=== PATIENT | male | born 1990 | race Caucasian/White ===

== ENCOUNTER → 2020-10-15 | Outpatient (CLI) | payer MEDICARE, OTHER ==
[~2020-10-15] MED LIST: ATIVAN0.5 MG PO; INDERAL TAB 4040 MG PO; LODINE CAP 300300 MG PO; MONODOX100 MG PO; NEXIUM40 MG PO; SAVELLA25 MG PO; SKELAXIN TAB 8800 MG PO; TESSALON PERLE100 MG PO; VITAMIN B12 PO; VITAMIN D250000 UNIT PO; ZOFRAN4 MG PO; ZYRTEC10 M3 PO
== END ==
LOC: KOH-I 10:51
DX: J47.9 Bronchiectasis, uncomplicated (principal); R06.02 Shortness of breath; R91.1 Solitary pulmonary nodule
CPT/HCPCS: 71250

== ENCOUNTER → 2020-11-01 | Outpatient (CLI) | payer MEDICARE, OTHER | LOC: KOH-I 11:01 | DX: S16.1XXA Strain of muscle, fascia and tendon at neck level, initial encounter (principal); M54.6 Pain in thoracic spine; X58.XXXA Exposure to other specified factors, initial encounter | CPT/HCPCS: 72040; 72070 ==

== ENCOUNTER 2021-02-21 13:04 | Emergency (ER) | payer MEDICARE, OTHER ==
[~2021-02-21 13:04] MED LIST changes: -ZOFRAN4 MG PO
[2021-02-21 14:11] LABS: HEMOGLOBIN 16.1 gm/dl (14.0-17.5); RED BLOOD COUNT 5.19 M/UL (4.20-5.50); WHITE BLOOD COUNT 5.3 K/UL (4.5-11.0)
[2021-02-21 14:37] LABS: BUN/CREATININE RATIO 18 (0-10)
[2021-02-21] MEDS ORDERED: ZOFRAN4 MG PO (16:47)
== END 2021-02-21 17:00 | disposition home or self-care (01) ==
LOC: ER1 13:04
PROVIDERS: Physician Assistant
DX: B34.9 Viral infection, unspecified (principal); K21.9 Gastro-esophageal reflux disease without esophagitis; I10 Essential (primary) hypertension; F17.200 Nicotine dependence, unspecified, uncomplicated; Z90.49 Acquired absence of other specified parts of digestive tract; Z88.8 Allergy status to other drugs, medicaments and biological substances
CPT/HCPCS: 80053; 81001; 83690; 85025; 99284

== ENCOUNTER → 2021-06-20 | Outpatient (CLI) | payer MEDICARE, OTHER ==
[~2021-06-20] MED LIST changes: +ZOFRAN4 MG PO
== END ==
LOC: KOH-I 10:00
DX: J18.9 Pneumonia, unspecified organism (principal)
CPT/HCPCS: 71046